=== PATIENT | male | born 1950 | race Caucasian/White ===

== ENCOUNTER 2020-02-21 09:47 | Outpatient (REF) | payer OTHER, SELFPAY ==
[2020-02-21 11:55] LABS: Free T4 (Free Thyroxine) 1.19 ng/dL (0.71-1.85); Thyroid Stimulating Hormone 0.07 mIU/mL (0.32-4.0)
== END 2020-02-21 09:48 | disposition home or self-care (01) ==
LOC: HO.HMGCLDS 09:47
PROVIDERS: PCP Internal Medicine; Visit Provider Nurse Practitioner Gerontology
DX: E03.8 Other specified hypothyroidism (principal)
CPT/HCPCS: 84439; 84443

== ENCOUNTER 2020-05-10 07:29 | Outpatient (REF) | payer OTHER, SELFPAY ==
[2020-05-10 11:12] LABS: MANUAL DIFF FLAG NO
[2020-05-10 11:31] LABS: Basophils Absolute Auto 0.1 X10*3/uL (0.0-0.2); Basophils Percent Auto 1.1 % (0-2); Eosinophils Absolute Auto 0.3 X10*3/uL (0.0-0.4); Eosinophils Percent Auto 5.1 % (0-4); Hematocrit 37.7 % (42-52); Hemoglobin 12.5 g/dl (14.0-18.0); Imm Gran Abs Auto 0.02 X10*3/uL (0.00-0.03); Imm Gran Pct Auto 0.3 % (0.0-0.4); Lymphocytes Absolute Auto 2.8 X10*3/uL (1.2-4.9); Lymphocytes Percent Auto 42.9 % (20-40); Mean Corpuscular HGB Conc 33.2 g/dl (31.0-36.0); Mean Corpuscular Volume 93.5 fL (80-98); Mean Platelet Volume 10.4 fL (9.4-12.4); Monocytes Absolute Auto 0.5 X10*3/uL (0.1-1.2); Monocytes Percent Auto 8.4 % (2-11); Neutrophils Absolute Auto 2.7 X10*3/uL (2.0-8.3); Neutrophils Percent Auto 42.2 % (45-73); Platelet Count 171 X10*3/uL (160-400); Red Blood Count 4.03 X10*6/uL (4.60-5.80); Red Cell Distribution Width 13.3 % (11.0-16.0); White Blood Count 6.5 X10*3/uL (4.8-10.8)
[2020-05-10 12:05] LABS: Free T4 (Free Thyroxine) 1.13 ng/dL (0.71-1.85); Thyroid Stimulating Hormone 0.22 uIU/mL (0.32-4.0)
[2020-05-10 12:06] LABS: Estimated Average Glucose 108 mg/dL; Hemoglobin A1c % 5.4 %
[2020-05-10 12:12] LABS: Prostate Specific Antigen Scr 0.37 ng/mL (<0.05-4.0)
[2020-05-10 12:13] LABS: Alanine Aminotransferase 23 U/L (0-40); Albumin Level 4.3 g/dL (3.5-5.0); Alkaline Phosphatase 137 U/L (39-117); Anion Gap 17 (12-20); Aspartate Amino Transferase 28 U/L (5-37); Bilirubin Total 0.7 mg/dL (0.0-1.0); Blood Urea Nitrogen 25 mg/dL (9-16); Calcium 8.9 mg/dL (8.4-10.2); Carbon Dioxide 21 mmol/L (22-29); Chloride 107 mmol/L (96-108); Cholesterol 229 mg/dL; Estimated Glomerular Filt Rate 51; Glucose Fasting 100 mg/dL (60-99); HDL Cholesterol 55 mg/dL; LDL Cholesterol Calculated 146 mg/dl; Potassium 4.7 mmol/l (3.3-5.1); Sodium 140 mmol/L (135-145); Total Protein 7.3 g/dL (6.5-8.0); Triglycerides 142 mg/dL
[2020-05-10 14:34] LABS: Creatinine Urine 84.22 mg/dL; Microalbum/Creatinine Ratio Ur 8.3 ug/mg cr
== END 2020-05-10 07:30 | disposition home or self-care (01) ==
LOC: HO.HMGCLDS 07:29
PROVIDERS: Physician Assistant; PCP Internal Medicine; Visit Provider Nurse Practitioner Gerontology
DX: I10 Essential (primary) hypertension (principal); E03.9 Hypothyroidism, unspecified; Z12.5 Encounter for screening for malignant neoplasm of prostate
CPT/HCPCS: 36415; 80053; 80061; 82043; 83036; 84153; 84439; 84443; 85025

== ENCOUNTER 2020-06-26 09:45 | Outpatient (REF) | payer OTHER, SELFPAY ==
[2020-06-26 12:03] LABS: Free T4 (Free Thyroxine) 1.03 ng/dL (0.71-1.85)
== END 2020-06-26 09:46 | disposition home or self-care (01) ==
LOC: HO.HMGCLDS 09:45
PROVIDERS: PCP Internal Medicine; Visit Provider Nurse Practitioner Gerontology
DX: E03.9 Hypothyroidism, unspecified (principal)
CPT/HCPCS: 36415; 84439; 84443

== ENCOUNTER 2020-08-22 07:41 | Outpatient (REF) | payer OTHER, SELFPAY ==
[2020-08-22 12:41] LABS: Free T4 (Free Thyroxine) 1.12 ng/dL (0.71-1.85); Thyroid Stimulating Hormone 1.05 uIU/mL (0.32-4.0)
== END 2020-08-22 07:42 | disposition home or self-care (01) ==
LOC: HO.HMGCLDS 07:41
PROVIDERS: PCP Internal Medicine; Visit Provider Nurse Practitioner Gerontology
DX: E03.9 Hypothyroidism, unspecified (principal)
CPT/HCPCS: 36415; 84439; 84443

== ENCOUNTER 2020-10-10 12:58 | Outpatient (REF) | payer MEDICARE, SELFPAY ==
[2020-10-10 14:21] LABS: Hemoglobin 12.9 g/dl (14.0-18.0); Mean Corpuscular HGB Conc 33.9 g/dl (31.0-36.0); Mean Corpuscular Volume 91.3 fL (80-98); Mean Platelet Volume 10.5 fL (9.4-12.4); Platelet Count 172 X10*3/uL (160-400); Red Blood Count 4.16 X10*6/uL (4.60-5.80); Red Cell Distribution Width 12.5 % (11.0-16.0); White Blood Count 7.8 X10*3/uL (4.8-10.8)
[2020-10-10 14:52] LABS: Alanine Aminotransferase 18 U/L (0-40); Albumin Level 4.5 g/dL (3.5-5.0); Alkaline Phosphatase 126 U/L (39-117); Anion Gap 14 (12-20); Aspartate Amino Transferase 27 U/L (5-37); Bilirubin Direct 0.3 mg/dL (0.0-0.5); Blood Urea Nitrogen 20 mg/dL (9-16); Calcium 9.4 mg/dL (8.4-10.2); Carbon Dioxide 22 mmol/L (22-29); Chloride 107 mmol/L (96-108); Cholesterol 240 mg/dL; Estimated Glomerular Filt Rate 47; Glucose Random 79 mg/dL (60-115); HDL Cholesterol 50 mg/dL; LDL Cholesterol Calculated 152 mg/dl; Potassium 4.8 mmol/L (3.3-5.1); Sodium 138 mmol/L (135-145); Total Protein 7.4 g/dL (6.5-8.0); Triglycerides 193 mg/dL
[2020-10-10 15:35] LABS: Thyroid Stimulating Hormone 1.25 uIU/mL (0.32-4.0)
== END 2020-10-10 12:59 | disposition home or self-care (01) ==
LOC: HO.HMGCLDS 12:58
PROVIDERS: PCP Internal Medicine; Visit Provider Internal Medicine
DX: E03.9 Hypothyroidism, unspecified (principal); I10 Essential (primary) hypertension
CPT/HCPCS: 36415; 80048; 80061; 80076; 84443; 85027

== ENCOUNTER → 2021-01-12 11:09 | Outpatient (BNVA) | payer MEDICARE, SELFPAY | PROVIDERS: PCP Internal Medicine; Visit Provider Nurse Practitioner Gerontology | DX: E03.9 Hypothyroidism, unspecified (principal); E06.3 Autoimmune thyroiditis | CPT/HCPCS: Q3014 ==

== ENCOUNTER 2021-07-05 07:25 | Outpatient (REF) | payer MEDICARE, SELFPAY ==
[2021-07-05 11:02] LABS: MANUAL DIFF FLAG NO
[2021-07-05 11:12] LABS: Basophils Percent Auto 0.6 % (0-2); Eosinophils Absolute Auto 0.2 X10*3/uL (0.0-0.4); Hematocrit 40.5 % (42.0-52.0); Hemoglobin 13.6 g/dl (14.0-18.0); Imm Gran Abs Auto 0.02 X10*3/uL (0.00-0.03); Imm Gran Pct Auto 0.4 % (0.0-0.4); Lymphocytes Absolute Auto 2.6 X10*3/uL (1.2-4.9); Lymphocytes Percent Auto 48.2 % (20-40); Mean Corpuscular HGB Conc 33.6 g/dl (31.0-36.0); Mean Corpuscular Hemoglobin 31.6 pg (27.0-33.0); Mean Platelet Volume 10.3 fL (9.4-12.4); Monocytes Absolute Auto 0.4 X10*3/uL (0.1-1.2); Monocytes Percent Auto 7.9 % (2-11); Neutrophils Absolute Auto 2.1 x10*3/uL (2.0-8.3); Neutrophils Percent Auto 38.9 % (45-73); Platelet Count 161 X10*3/uL (160-400); Red Blood Count 4.31 X10*6/uL (4.60-5.80); Red Cell Distribution Width 12.6 % (11.0-16.0); White Blood Count 5.3 X10*3/uL (4.8-10.8)
[2021-07-05 11:48] LABS: Alanine Aminotransferase 15 U/L (0-40); Albumin Level 4.5 g/dL (3.5-5.0); Alkaline Phosphatase 89 U/L (39-117); Anion Gap 10 (12-20); Aspartate Amino Transferase 24 U/L (5-37); Bilirubin Total 0.8 mg/dL (0.0-1.0); Blood Urea Nitrogen 18 mg/dL (9-16); Calcium 9.4 mg/dL (8.4-10.2); Carbon Dioxide 27 mmol/L (22-29); Chloride 108 mmol/L (96-108); Cholesterol 256 mg/dL; Estimated Glomerular Filt Rate 48; Glucose Fasting 95 mg/dL (60-99); HDL Cholesterol 52 mg/dL; LDL Cholesterol Calculated 170 mg/dl; Potassium 3.9 mmol/L (3.3-5.1); Sodium 141 mmol/L (135-145); Total Protein 7.4 g/dL (6.5-8.0); Triglycerides 173 mg/dL
[2021-07-05 11:51] LABS: TSH reflex Free T4 5.49 uIU/mL (0.32-4.0)
[2021-07-05 12:10] LABS: Folate > 20.0 ng/mL (> or = 4.0); Vitamin B12 803 pg/mL (200-900)
[2021-07-05 12:36] LABS: Free T4 (Free Thyroxine) 1.03 ng/dL (0.71-1.85)
[2021-07-10 06:56] LABS: Vitamin D 25-OH, D2 <4 ng/mL; Vitamin D 25-OH, D3 50 ng/mL; Vitamin D 25-OH, Total 50 ng/mL (30-100)
== END 2021-07-05 07:26 | disposition home or self-care (01) ==
LOC: HO.HMGCLDS 07:25
PROVIDERS: PCP Internal Medicine; Visit Provider Nurse Practitioner Acute Care
DX: E03.9 Hypothyroidism, unspecified (principal)
CPT/HCPCS: 36415; 80053; 80061; 82306; 82607; 82746; 84439; 84443; 85025

== ENCOUNTER 2022-01-17 07:11 | Outpatient (REF) | payer MEDICARE, SELFPAY ==
[2022-01-17 11:26] LABS: Hematocrit 38.7 % (42.0-52.0); Mean Corpuscular HGB Conc 33.6 g/dl (31.0-36.0); Mean Corpuscular Hemoglobin 31.2 pg (27.0-33.0); Mean Corpuscular Volume 92.8 fL (80.0-98.0); Mean Platelet Volume 10.7 fL (9.4-12.4); Platelet Count 153 X10*3/uL (160-400); Red Blood Count 4.17 X10*6/uL (4.60-5.80); Red Cell Distribution Width 12.8 % (11.0-16.0); White Blood Count 5.2 X10*3/uL (4.8-10.8)
[2022-01-17 11:37] LABS: Alanine Aminotransferase 18 U/L (0-40); Albumin Level 4.4 g/dL (3.5-5.0); Alkaline Phosphatase 91 U/L (39-117); Anion Gap 15 (12-20); Aspartate Amino Transferase 25 U/L (5-37); Bilirubin Direct 0.2 mg/dL (0.0-0.5); Bilirubin Total 0.5 mg/dL (0.0-1.0); Blood Urea Nitrogen 22 mg/dL (9-16); Calcium 9.3 mg/dL (8.4-10.2); Carbon Dioxide 24 mmol/L (22-29); Chloride 107 mmol/L (96-108); Cholesterol 218 mg/dL; Estimated Glomerular Filt Rate 55; Glucose Random 88 mg/dL (60-115); HDL Cholesterol 48 mg/dL; LDL Cholesterol Calculated 124 mg/dl; Potassium 4.5 mmol/L (3.3-5.1); Sodium 141 mmol/L (135-145); Total Protein 7.2 g/dL (6.5-8.0); Triglycerides 233 mg/dL
[2022-01-17 11:40] LABS: Appearance Urine Clear; Color Urine Yellow; Glucose Urine UA Negative (Negative); Leukocyte Esterase Urine Negative (Negative); Nitrite Urine Negative (Negative); Urine Blood Negative (Negative); Urine Ketones Negative (Negative); Urine Protein Negative (Neg-Trace)
[2022-01-17 12:02] LABS: Thyroid Stimulating Hormone 0.26 uIU/mL (0.32-4.0)
== END 2022-01-17 07:12 | disposition home or self-care (01) ==
LOC: HO.HMGCLDS 07:11
PROVIDERS: PCP Internal Medicine; Visit Provider Internal Medicine
DX: E78.00 Pure hypercholesterolemia, unspecified (principal); F32.9 Major depressive disorder, single episode, unspecified; I10 Essential (primary) hypertension; E03.9 Hypothyroidism, unspecified
CPT/HCPCS: 36415; 80048; 80061; 80076; 81003; 84443; 85027

== ENCOUNTER 2022-08-20 07:56 | Outpatient (REF) | payer MEDICARE, SELFPAY ==
[2022-08-20 11:43] LABS: Hemoglobin 13.3 g/dl (14.0-18.0); Mean Corpuscular HGB Conc 34.1 g/dl (31.0-36.0); Mean Corpuscular Hemoglobin 31.4 pg (27.0-33.0); Mean Corpuscular Volume 92.2 fL (80.0-98.0); Mean Platelet Volume 10.6 fL (9.4-12.4); Platelet Count 155 X10*3/uL (160-400); Red Blood Count 4.23 X10*6/uL (4.60-5.80); Red Cell Distribution Width 12.4 % (11.0-16.0); White Blood Count 4.7 X10*3/uL (4.8-10.8)
[2022-08-20 11:55] LABS: Alanine Aminotransferase 13 U/L (0-40); Albumin Level 4.3 g/dL (3.5-5.0); Alkaline Phosphatase 76 U/L (39-117); Anion Gap 12 (12-20); Aspartate Amino Transferase 21 U/L (5-37); Bilirubin Direct 0.2 mg/dL (0.0-0.5); Bilirubin Total 0.8 mg/dL (0.0-1.0); Blood Urea Nitrogen 17 mg/dL (9-16); Calcium 9.1 mg/dL (8.4-10.2); Carbon Dioxide 27 mmol/L (22-29); Chloride 108 mmol/L (96-108); Cholesterol 206 mg/dL; Estimated Glomerular Filt Rate 55; Glucose Random 91 mg/dL (60-115); HDL Cholesterol 48 mg/dL; LDL Cholesterol Calculated 127 mg/dl; Potassium 4.5 mmol/L (3.3-5.1); Sodium 142 mmol/L (135-145); Total Protein 6.8 g/dL (6.5-8.0); Triglycerides 156 mg/dL
[2022-08-20 12:12] LABS: Thyroid Stimulating Hormone 0.32 uIU/mL (0.32-4.0)
== END 2022-08-20 07:57 | disposition home or self-care (01) ==
LOC: HO.HMGCLDS 07:56
PROVIDERS: PCP Internal Medicine; Visit Provider Internal Medicine
DX: E03.9 Hypothyroidism, unspecified (principal); E78.00 Pure hypercholesterolemia, unspecified
CPT/HCPCS: 36415; 80048; 80061; 80076; 84443; 85027

== ENCOUNTER 2023-01-16 14:48 | Outpatient (AMB) | payer MEDICARE, SELFPAY ==
--- NOTE | 2023-01-16 14:58 | A.OFFPC_ITS ---
Vital Signs 01/16/23 15:00 Height 5 ft 9 in Weight 175 lb 6 oz BMI 25.9 BP 130/80 Blood Pressure Location Lt brachial Position Sitting Pulse 78 Pulse Source Pulse Oximeter Pulse Oximetry (%) 98 Oxygen Delivery Method Room Air Intake Visit Reasons: 6mth f/u Intake Note: Patient is here to follow up on HTN, Hypothyroidism,. Last Inserter Required: No Draw Operator: Present Accompanied by: Spouse Allergies cat dander Allergy (Unknown, Verified 01/19/23 10:58) Unknown mold Allergy (Unknown, Verified 01/19/23 10:58) Unknown tree and shrub pollen Allergy (Unknown, Verified 01/19/23 10:58) Unknown Medication List - Last Reconciled 01/19/23 by Mario Alberto Queen MD levothyroxine 125 mcg PO DAILY metoprolol tartrate 50 mg PO DAILY Tobacco use date assessed: 01/16/23 Fall risk assessment: No Falls in past year Last assessed Fall Risk: 01/16/23 Dental Screening Dental Screen Date: 01/16/23 Did you have a dental visit in the last 12 months?: Yes Did you have a dental problem in the last 6 months where you did not have access to dental care?: No Was dental information given to patient?: Patient has dentist HPI 6mth f/u HPI Details 72-year-old male presents to the office to discuss his chronic medical conditions. Patient recently underwent a right total knee replacement. He has recovered well from the procedure. Still undergoing physical therapy. Continues to have minimal discomfort her coming down stairs. Able to function and do all activities of daily living. Has begun to drive also. [facility] Medical History (Updated 01/19/23 @ 11:00 by Mario Alberto Queen MD) MDD (major depressive disorder) HTN (hypertension) Andre's disease Hypothyroidism (acquired) Surgical History History of knee replacement procedure of right knee History of bilateral cataract extraction History of hip replacement H/O knee surgery History of tonsillectomy Family History Father Hypertension Aortic valvular disease Mother Hypertension Alzheimers disease Maternal Aunt Cancer Social History Household Members: Spouse Housing: House Alcohol intake: former Patient Tobacco Use Status: Former Tobacco user e-Cigarette/Vaping Use: Never Used Second Hand Smoke Exposure: No service: No Current occupational status: retired Cognitive needs: No Hearing needs: No Vision needs: No Questionnaire Thrive Questionnaire Date Thrive assessed: 07/10/22 INDERJIT-7 AMB Questionnaire INDERJIT-7 Date INDERJIT - 7 assessed: 07/10/22 Source: Developed by Drs. Sanjay Bliss, Vida Hernandez, Hector Duarte and colleagues, with an educational cynthia from [employer]. Physical exam (Primary Care) Vital Signs: Last Vital Signs Pulse 78 01/16/23 15:00 BP 130/80 01/16/23 15:00 Pulse Ox 98 01/16/23 15:00 Oxygen Delivery Method Room Air 01/16/23 15:00 Care Plan Goal for BP management: Blood pressure is in range. Continue medications at same dosage BMI result Body Mass Index 25.9 Tobacco/Smoking Status: Tobacco use Status Tobacco use date assessed 01/16/23 01/16/23 15:02 Patient Tobacco Use Status Former Tobacco user 01/16/23 15:02 e-Cigarette/Vaping Use Never Used 01/16/23 15:02 Thrive Assessment: Date of Thrive Assessment Date Thrive assessed 07/10/22 01/16/23 15:02 Advance Care Planning discussion: Exists, not on file Date of discussion: 01/16/23 Who was present: Patient and his Forms completed: Health Care Proxy and MOLST Time spent: 1-15 minutes, not on file Actual minutes spent: 5 Const General: cooperative and healthy appearing Nutritional Appearance: well nourished Orientation/consciousness: patient oriented x3 Limitations: no limitations HENMT Head: Yes normal to inspection Eyes General: appearance normal, both eyes and all related structures Neck Neck: Yes normal visual inspection Chest Chest palpation & inspection: normal palpation of entire chest wall Resp Effort & Inspection: normal respiratory effort Neuro General: patient oriented x3 Assessment and Plan Assessment & Plan (1) HTN (hypertension): Code(s): I10 - Essential (primary) hypertension Qualifiers: Hypertension type: primary hypertension Qualified Code(s): I10 - Essential (primary) hypertension Plan: Blood pressure is in range. Continue current medications (2) MDD (major depressive disorder): Code(s): F32.9 - Major depressive disorder, single episode, unspecified Qualifiers: Major depression recurrence: recurrent Active/Remission status: cu rrently active Major depression episode severity: mild Qualified Code(s): F33.0 - Major depressive disorder, recurrent, mild Plan: Condition is stable (3) Hypothyroidism (acquired): Code(s): E03.9 - Hypothyroidism, unspecified Plan: TSH is in range. Continue Synthroid at same dosage. (4) Hypercholesteremia: Code(s): E78.00 - Pure hypercholesterolemia, unspecified Plan: LDL is in range. Continue medications at same dosage. Medications: Refilled metoprolol tartrate 50 mg PO DAILY 90 tabs 1RF Coding Level of Care Code Est Pt Level 4 (22022) Diagnoses Primary hypertension I10 Hypertension type: primary hypertension Mild episode of recurrent major depressive disorder F33.0 Major depression recurrence: recurrent Active/Remission status: currently active Major depression episode severity: mild Hypothyroidism (acquired) E03.9 Hypercholesteremia E78.00 Additional Codes Vital Signs *Quality* - Advance Care Planning discussion: Exists, not on file ([id number]) Vital Signs *Quality* - Time spent: 1-15 minutes, not on file ([id number])
[2023-01-16 15:00] VITALS: BP 130/80; PULSE 78; O2SAT 98; BMI 25.9
== END 2023-01-16 15:22 | disposition home or self-care (01) ==
PROVIDERS: Visit Provider Internal Medicine
DX: I10 Essential (primary) hypertension (principal); F33.0 Major depressive disorder, recurrent, mild; E03.9 Hypothyroidism, unspecified; E78.00 Pure hypercholesterolemia, unspecified; Z00.00 Encounter for general adult medical examination without abnormal findings
CPT/HCPCS: 1123F; 1124F; 99214

== ENCOUNTER 2023-07-17 14:21 | Outpatient (AMB) | payer MEDICARE, SELFPAY ==
--- NOTE | 2023-07-17 14:25 | A.OFFPC_ITS ---
Vital Signs 07/17/23 14:27 Height 5 ft 9 in Weight 180 lb 6 oz BMI 26.6 BP 138/62 Blood Pressure Location Rt brachial Position Sitting Pulse 58 Pulse Source Pulse Oximeter Pulse Oximetry (%) 100 Oxygen Delivery Method Room Air Intake Visit Reasons: 6 month f/u Intake Note: Patient is here to follow up on HTN, Hypercholestermia, Hypothyroidism, MDD. Evaluator Required: No Railroad Construction Director: Present Accompanied by: Spouse Allergies cat dander Allergy (Unknown, Verified 07/26/23 14:39) Unknown mold Allergy (Unknown, Verified 07/26/23 14:39) Unknown tree and shrub pollen Allergy (Unknown, Verified 07/26/23 14:39) Unknown Medication List - Last Reconciled 07/26/23 by Mario Alberto Queen MD levothyroxine 125 mcg PO DAILY metoprolol tartrate 50 mg PO DAILY Tobacco use date assessed: 07/17/23 Fall risk assessment: No Falls in past year Last assessed Fall Risk: 07/17/23 Dental Screening Dental Screen Date: 07/17/23 Did you have a dental visit in the last 12 months?: Yes Did you have a dental problem in the last 6 months where you did not have access to dental care?: No Was dental information given to patient?: Patient has dentist HPI 6 month f/u HPI Details 72-year-old male presents to the office to discuss his chronic medical conditions. Patient is at baseline state of health. He is able to function and do all activities of daily living. Recently had oral surgery done and he could handle the procedure well. Continues to attend alcoholic anonymous meetings. [facility] Medical History MDD (major depressive disorder) HTN (hypertension) Andre's disease Hypothyroidism (acquired) Surgical History History of oral surgery History of knee replacement procedure of right knee History of bilateral cataract extraction History of hip replacement H/O knee surgery History of tonsillectomy Family History Father Hypertension Aortic valvular disease Mother Hypertension Alzheimers disease Maternal Aunt Cancer Social History Household Members: Spouse Housing: House Alcohol intake: former Patient Tobacco Use Status: Former Tobacco user e-Cigarette/Vaping Use: Never Used Second Hand Smoke Exposure: No service: No Current occupational status: retired Cognitive needs: No Hearing needs: No Vision needs: No Questionnaire PHQ-9 Over the last 2 weeks, how often have you been bothered by any of the following problems? 1. Little interest or pleasure in doing things: not at all 2. Feeling down, depressed, or hopeless: not at all 3. Trouble falling or staying asleep, or sleeping too much: not at all 4. Feeling tired or having little energy: not at all 5. Poor appetite or overeating: not at all 6. Feeling bad about yourself - or that you are a failure or have let yourself or your family down: not at all 7. Trouble concentrating on things, such as reading the newspaper or watching television: not at all 8. Moving or speaking so slowly that other people could have noticed. Or the opposite - being so fidgety or restless that you have been moving around a lot more than usual: not at all 9. Thoughts that you would be better off or of hurting yourself in some way: not at all Total score: 0 Depression Screening Interpretation: Negative Depression Screening Done: Yes Source: Developed by Drs. Sanjay Bliss, Vida Hernandez, Hector Duarte and colleagues, with an educational cynthia from [employer]. Thrive Questionnaire Date Thrive assessed: 07/17/23 I am a: Patient What is your living situation today?: I have a steady place to live Within the past 12 months, did the food you bought not last and you didn't have the money to get more?: Never true Within the past 12 months, did you worry whether your food would run out before you got money to buy more?: Never true Do you have trouble paying for medicines?: No Do you have trouble getting transportation to medical appointments?: No Do you have trouble paying your heating and electricity bill?: No Do you have trouble taking care of your child, family member or friend?: No Do you have trouble with day-to-day activities such as bathing, preparing meals, shopping, managing finances, etc.?: No Are you currently unemployed and looking for a job?: No Are you interested in more education?: No Currently or been in a relationship where the following occur: no concerns reported THRIVE Score: 0 AUDIT C Alcohol Use Questionnaire (AUDIT-C) 1. How often do you have a drink containing alcohol?: Never Total Score: 0 INDERJIT-7 AMB Questionnaire INDERJIT-7 Date INDERJIT - 7 assessed: 07/17/23 Feeling nervous, anxious, or on edge: 0 = Not at all Not being able to stop or control worryin = Not at all Worrying too much about different things: 0 = Not at all Trouble relaxin = Not at all Being so restless that it is hard to sit still: 0 = Not at all Becoming easily annoyed or irritable: 0 = Not at all Feeling afraid as if something awful might happen: 0 = Not at all Total INDERJIT-7 score (0-4 normal; 5-9 mild; 10-14 moderate; 15-21 severe): 0 Source: Developed by Drs. Sanjay Bliss, Vida Hernandez, Hector Duarte and colleagues, with an educational cynthia from [employer]. Physical exam (Primary Care) Vital Signs: Last Vital Signs Pulse 58 07/17/23 14:27 BP 138/62 07/17/23 14:27 Pulse Ox 100 07/17/23 14:27 Oxygen Delivery Method Room Air 07/17/23 14:27 Care Plan Goal for BP management: Blood pressure is in range. BMI result Body Mass Index 26.6 Tobacco/Smoking Status: Tobacco use Status Tobacco use date assessed 07/17/23 07/17/23 14:39 Patient Tobacco Use Status Former Tobacco user 07/17/23 14:39 e-Cigarette/Vaping Use Never Used 07/17/23 14:39 PHQ-9: PHQ-9 Score PHQ-9: Total score 0 07/17/23 15:02 Depression Screening Interpretation: Negative Thrive Assessment: Date of Thrive Assessment Date Thrive assessed 07/17/23 07/17/23 14:39 Currently or been in a relationship where the following occur: no concerns reported Advance Care Planning discussion: Exists, not on file Date of discussion: 07/17/23 Forms completed: Health Care Proxy Time spent: 1-15 minutes, not on file Actual minutes spent: 5 Const General: cooperative and healthy appearing Nutritional Appearance: well nourished Orientation/consciousness: patient oriented x3 Limitations: no limitations HENMT Head: Yes normal to inspection Eyes General: appearance normal, both eyes and all related structures Neck Neck: Yes normal visual inspection Chest Chest palpation & inspection: normal palpation of entire chest wall Resp Effort & Inspection: normal respiratory effort Neuro General: patient oriented x3 Assessment and Plan Assessment & Plan (1) HTN (hypertension): Code(s): I10 - Essential (primary) hypertension Qualifiers: Hypertension type: primary hypertension Qualified Code(s): I10 - Essential (primary) hypertension Plan: Blood pressure is in range. Blood work has been ordered. Will call with results. Continue medications at same dosage. (2) Hypercholesteremia: Code(s): E78.00 - Pure hypercholesterolemia, unspecified Plan: Blood work has been ordered. Will call with the results. Continue statins at same dosage. Orders: Orders Lipid Panel 07/17/23 I10 - Essential (primary) hypertension, E78.00 - Pure hypercholesterolemia, unspecified Liver Panel 07/17/23 I10 - Essential (primary) hypertension, E78.00 - Pure hyp ercholesterolemia, unspecified Prostate Specific Antigen Scr 07/17/23 I10 - Essential (primary) hypertension, E78.00 - Pure hypercholesterolemia, unspecified Basic Metabolic Panel 07/17/23 I10 - Essential (primary) hypertension, E78.00 - Pure hypercholesterolemia, unspecified Complete Blood Count no Diff 07/17/23 I10 - Essential (primary) hypertension, E78.00 - Pure hypercholesterolemia, unspecified Thyroid Stimulating Hormone 07/17/23 I10 - Essential (primary) hypertension, E78.00 - Pure hypercholesterolemia, unspecified UA and rflx microscopic 07/17/23 I10 - Essential (primary) hypertension, E78.00 - Pure hypercholesterolemia, unspecified Coding Level of Care Code Est Pt Level 4 (77244) Diagnoses Primary hypertension I10 Hypertension type: primary hypertension Hypercholesteremia E78.00 Additional Codes Vital Signs *Quality* - Advance Care Planning discussion: Exists, not on file ([id number]) Vital Signs *Quality* - Time spent: 1-15 minutes, not on file ([id number])
[2023-07-17 14:27] VITALS: BP 138/62; PULSE 58; O2SAT 100; BMI 26.6
== END 2023-07-17 15:04 | disposition home or self-care (01) ==
PROVIDERS: PCP Internal Medicine; Visit Provider Internal Medicine
DX: I10 Essential (primary) hypertension (principal); E78.00 Pure hypercholesterolemia, unspecified; Z00.00 Encounter for general adult medical examination without abnormal findings
CPT/HCPCS: 1123F; 1124F; 99214

== ENCOUNTER 2023-08-05 07:33 | Outpatient (REF) | payer MEDICARE, SELFPAY ==
[2023-08-05 12:56] LABS: Hematocrit 37.5 % (42.0-52.0); Hemoglobin 12.8 g/dl (14.0-18.0); Mean Corpuscular HGB Conc 34.1 g/dl (31.0-36.0); Mean Corpuscular Hemoglobin 31.1 pg (27.0-33.0); Mean Corpuscular Volume 91.2 fL (80.0-98.0); Mean Platelet Volume 10.1 fL (9.4-12.4); Platelet Count 173 X10*3/uL (160-400); Red Blood Count 4.11 X10*6/uL (4.60-5.80); Red Cell Distribution Width 12.8 % (11.0-16.0); White Blood Count 4.8 X10*3/uL (4.8-10.8)
[2023-08-05 13:17] LABS: Appearance Urine Clear; Color Urine Yellow; Glucose Urine UA Negative (Negative); Leukocyte Esterase Urine Negative (Negative); Nitrite Urine Negative (Negative); Specific Gravity - Urine <= 1.005 (1.005-1.025); Urine Blood Negative (Negative); Urine Ketones Negative (Negative); Urine Protein Negative (Neg-Trace)
[2023-08-05 13:25] LABS: Prostate Specific Antigen Scr 0.49 ng/mL (<0.05-4.0)
[2023-08-05 13:29] LABS: Alanine Aminotransferase 20 U/L (0-40); Albumin Level 4.1 g/dL (3.5-5.0); Alkaline Phosphatase 82 U/L (39-117); Anion Gap 11 (12-20); Aspartate Amino Transferase 28 U/L (5-37); Bilirubin Direct 0.2 mg/dL (0.0-0.5); Bilirubin Total 0.5 mg/dL (0.0-1.0); Blood Urea Nitrogen 11 mg/dL (9-16); Calcium 9.2 mg/dL (8.4-10.2); Carbon Dioxide 25 mmol/L (22-29); Chloride 109 mmol/L (96-108); Cholesterol 215 mg/dL (<200); Estimated Glomerular Filt Rate 58; Glucose Random 94 mg/dL (60-115); HDL Cholesterol 51 mg/dL (>40); LDL Cholesterol Calculated 132 mg/dL (<100); Potassium 4.2 mmol/L (3.3-5.1); Sodium 141 mmol/L (135-145); Thyroid Stimulating Hormone 0.48 uIU/mL (0.32-4.0); Total Protein 7.3 g/dL (6.5-8.0); Triglycerides 162 mg/dL (<150)
== END 2023-08-05 07:34 | disposition home or self-care (01) ==
LOC: HO.HMGCLDS 07:33
PROVIDERS: PCP Internal Medicine; Visit Provider Internal Medicine
DX: I10 Essential (primary) hypertension (principal); E78.00 Pure hypercholesterolemia, unspecified; Z12.5 Encounter for screening for malignant neoplasm of prostate
CPT/HCPCS: 36415; 80048; 80061; 80076; 81003; 84153; 84443; 85027

== ENCOUNTER 2024-01-15 13:45 | Outpatient (AMB) | payer MEDICARE, SELFPAY ==
--- NOTE | 2024-01-15 13:58 | MHC.PC.OV ---
Vital Signs 01/15/24 14:01 Height 5 ft 9 in Weight 179 lb 2 oz BMI 26.4 BP 112/78 Blood Pressure Location Lt brachial Position Sitting Pulse 59 Pulse Source Pulse Oximeter Pulse Oximetry (%) 98 Oxygen Delivery Method Room Air Intake Visit Reasons: 6 Month F/U Intake Note: Patient is here to follow up on HTN, Hypothyroidism, Hypercholesteroemia. Extractor Operator Helper Required: No Respiratory Therapy Director: Present Accompanied by: Spouse Allergies cat dander Allergy (Unknown, Verified 01/15/24 14:01) Unknown mold Allergy (Unknown, Verified 01/15/24 14:01) Unknown tree and shrub pollen Allergy (Unknown, Verified 01/15/24 14:01) Unknown Tobacco use date assessed: 01/15/24 Fall risk assessment: No Falls in past year Last assessed Fall Risk: 01/15/24 Dental Screening Dental Screen Date: 07/17/23 HPI 6 Month F/U HPI Details 73-year-old male presents to the office to discuss his chronic medical conditions. Compliant with medications and reporting no side effects. Able to function and do activities of daily living. Patient continues to have issues with the dental health. an implant inserted had to be removed. Also has difficulty with smell and taste. [facility] Medical History MDD (major depressive disorder) HTN (hypertension) Andre's disease Hypothyroidism (acquired) Surgical History History of oral surgery History of knee replacement procedure of right knee History of bilateral cataract extraction History of hip replacement H/O knee surgery History of tonsillectomy Family History Father Hypertension Aortic valvular disease Mother Hypertension Alzheimers disease Maternal Aunt Cancer Social History Household Members: Spouse Housing: House Alcohol intake: former Patient Tobacco Use Status: Former Tobacco user e-Cigarette/Vaping Use: Never Used Second Hand Smoke Exposure: No service: No Current occupational status: retired Cognitive needs: No Hearing needs: No Vision needs: No Questionnaire Thrive Questionnaire Date Thrive assessed: 07/17/23 AUDIT C Alcohol Use Questionnaire (AUDIT-C) 3. How often do you have six or more drinks on one occasion?: Never Total Score: 0 INDERJIT-7 AMB Questionnaire INDERJIT-7 Date INDERJIT - 7 assessed: 07/17/23 Source: Developed by Drs. Sanjay Bliss, Vida Hernandez, Hector Duarte and colleagues, with an educational cynthia from [employer]. Physical exam (Primary Care) Vital Signs: Last Vital Signs Pulse 59 01/15/24 14:01 BP 112/78 01/15/24 14:01 Pulse Ox 98 01/15/24 14:01 Oxygen Delivery Method Room Air 01/15/24 14:01 Care Plan Goal for BP management: Blood pressure is in range. BMI result Body Mass Index 26.4 Tobacco/Smoking Status: Tobacco use Status Tobacco use date assessed 01/15/24 01/15/24 14:04 Patient Tobacco Use Status Former Tobacco user 01/15/24 14:04 e-Cigarette/Vaping Use Never Used 01/15/24 14:04 Thrive Assessment: Date of Thrive Assessment Date Thrive assessed 07/17/23 01/15/24 14:04 Advance Care Planning discussion: Exists, not on file Date of discussion: 01/15/24 Who was present: Patient and his Forms completed: Health Care Proxy and MOLST Time spent: 1-15 minutes, not on file Actual minutes spent: 5 Const General: cooperative and healthy appearing Nutritional Appearance: well nourished Orientation/consciousness: patient oriented x3 Limitations: no limitations HENMT Head: Yes normal to inspection Eyes General: appearance normal, both eyes and all related structures Neck Neck: Yes normal visual inspection Chest Chest palpation & inspection: normal palpation of entire chest wall Resp Effort & Inspection: normal respiratory effort Neuro General: patient oriented x3 Assessment and Plan Assessment & Plan (1) MDD (major depressive disorder): Code(s): F32.9 - Major depressive disorder, single episode, unspecified Qualifiers: Major depression recurrence: recurrent Active/Remission status: currently active Major depression episode severity: mild Qualified Code(s): F33.0 - Major depressive disorder, recurrent, mild Plan: Patient has depression symptoms are stable without medications. (2) HTN (hypertension): Code(s): I10 - Essential (primary) hypertension Qualifiers: Hypertension type: primary hypertension Qualified Code(s): I10 - Essential (primary) hypertension Plan: Blood pressure is stable. Blood work has been ordered. (3) Hypothyroidism (acquired): Code(s): E03.9 - Hypothyroidism, unspecified Plan: TSH has been ordered. Will call with results. (4) Hypercholesteremia: Code(s): E78.00 - Pure hypercholesterolemia, unspecified Plan: Continue current medications. Orders: Orders Basic Metabolic Panel Today E03.9 - Hypothyroidism, unspecified, E78.00 - Pure hypercholesterolemia, unspecified, F33.0 - Major depressive disorder, recurrent, mild, I10 - Essential (primary) hypertension Lipid Panel Today E03.9 - Hypothyroidism, unspecified, E78.00 - Pure hypercholesterolemia, unspecified, F33.0 - Major depressive disorder, recurrent, mild, I10 - Essential (primary) hypertension UA and rflx microscopic Today E03.9 - Hypothyroidism, unspecified, E78.00 - Pure hypercholesterolemia, unspecified, F33.0 - Major depressive disorder, recurrent, mild, I10 - Essential (primary) hypertension Complete Blood Count no Diff Today E03.9 - Hypothyroidism, unspecified, E78.00 - Pure hypercholesterolemia, unspecified, F33.0 - Major depressive disorder, recurrent, mild, I10 - Essential (primary) hypertension Liver Panel Today E03.9 - Hypothyroidism, unspecified, E78.00 - Pure hypercholesterolemia, unspecified, F33.0 - Major depressive disorder, recurrent, mild, I10 - Essential (primary) hypertension Thyroid Stimulating Hormone Today E03.9 - Hypothyroidism, unspecified, E78.00 - Pure hypercholesterolemia, unspecified, F33.0 - Major depressive disorder, recurrent, mild, I10 - Essential (primary) hypertension Coding Level of Care Code Est Pt Level 4 (11738) Complex EM visit Add On [id number] Diagnoses Mild episode of recurrent major depressive disorder F33.0 Major depression recurrence: recurrent Active/Remission status: currently active Major depression episode severity: mild Primary hypertension I10 Hypertension type: primary hypertension Hypothyroidism (acquired) E03.9 Hypercholesteremia E78.00 Additional Codes Vital Signs *Quality* - Advance Care Planning discussion: Exists, not on file ([id number]) Vital Signs *Quality* - Time spent: 1-15 minutes, not on file ([id number])
[2024-01-15 14:01] VITALS: BP 112/78; PULSE 59; O2SAT 98; BMI 26.4
== END 2024-01-15 14:55 | disposition home or self-care (01) ==
PROVIDERS: PCP Internal Medicine; Visit Provider Internal Medicine
DX: F33.0 Major depressive disorder, recurrent, mild (principal); I10 Essential (primary) hypertension; E03.9 Hypothyroidism, unspecified; E78.00 Pure hypercholesterolemia, unspecified; Z00.00 Encounter for general adult medical examination without abnormal findings
CPT/HCPCS: 1123F; 1124F; 99214; G2211

== ENCOUNTER 2024-01-20 07:25 | Outpatient (REF) | payer MEDICARE, SELFPAY ==
[2024-01-20 10:18] LABS: Appearance Urine Clear; Color Urine Yellow; Glucose Urine UA Negative (Negative); Leukocyte Esterase Urine Negative (Negative); Nitrite Urine Negative (Negative); Urine Blood Negative (Negative); Urine Ketones Negative (Negative); Urine Protein Negative (Neg-Trace)
[2024-01-20 10:28] LABS: Hematocrit 37.5 % (42.0-52.0); Hemoglobin 13.1 g/dl (14.0-18.0); Mean Corpuscular HGB Conc 34.9 g/dl (31.0-36.0); Mean Corpuscular Hemoglobin 31.6 pg (27.0-33.0); Mean Corpuscular Volume 90.4 fL (80.0-98.0); Mean Platelet Volume 10.2 fL (9.4-12.4); Platelet Count 156 X10*3/uL (160-400); Red Blood Count 4.15 X10*6/uL (4.60-5.80); Red Cell Distribution Width 12.3 % (11.0-16.0)
[2024-01-20 11:16] LABS: Alanine Aminotransferase 16 U/L (0-40); Albumin Level 4.2 g/dL (3.5-5.0); Alkaline Phosphatase 72 U/L (39-117); Anion Gap 11 (12-20); Aspartate Amino Transferase 26 U/L (5-37); Bilirubin Direct 0.1 mg/dL (0.0-0.5); Bilirubin Total 0.4 mg/dL (0.0-1.0); Blood Urea Nitrogen 17 mg/dL (9-16); Calcium 9.3 mg/dL (8.4-10.2); Carbon Dioxide 26 mmol/L (22-29); Chloride 106 mmol/L (96-108); Cholesterol 214 mg/dL (<200); Estimated Glomerular Filt Rate 54; Glucose Random 94 mg/dL (60-115); HDL Cholesterol 48 mg/dL (>40); LDL Cholesterol Calculated 130 mg/dL (<100); Potassium 4.1 mmol/L (3.3-5.1); Sodium 139 mmol/L (135-145); Thyroid Stimulating Hormone 0.49 uIU/mL (0.32-4.0); Total Protein 7.3 g/dL (6.5-8.0); Triglycerides 182 mg/dL (<150)
== END 2024-01-20 07:26 | disposition home or self-care (01) ==
LOC: HO.HMGCLDS 07:25
PROVIDERS: PCP Internal Medicine; Visit Provider Internal Medicine
DX: F33.0 Major depressive disorder, recurrent, mild (principal); I10 Essential (primary) hypertension; E78.00 Pure hypercholesterolemia, unspecified; E03.9 Hypothyroidism, unspecified
CPT/HCPCS: 36415; 80048; 80061; 80076; 81003; 84443; 85027

== ENCOUNTER 2024-07-15 13:45 | Outpatient (AMB) | payer MEDICARE, SELFPAY ==
--- NOTE | 2024-07-15 14:07 | A.OFFPC_ITS ---
Vital Signs 07/15/24 14:09 Height 5 ft 9 in Weight 181 lb 2 oz BMI 26.7 BP 120/68 Blood Pressure Location Lt brachial Position Sitting Pulse 56 Pulse Source Pulse Oximeter Temp 97.3 F Temp Source Temporal Artery Scan Pulse Oximetry (%) 98 Oxygen Delivery Method Room Air Intake Visit Reasons: 6 month follow up Intake Note: Patient is here to follow up on HTN, Hypercholesterolemia, Hypothyroidism. [employer] Consultant Required: No Die Technician: Present Accompanied by: Spouse Allergies cat dander Allergy (Unknown, Verified 07/15/24 14:09) Unknown mold Allergy (Unknown, Verified 07/15/24 14:09) Unknown tree and shrub pollen Allergy (Unknown, Verified 07/15/24 14:09) Unknown Tobacco use date assessed: 07/15/24 Fall risk assessment: No Falls in past year Last assessed Fall Risk: 07/15/24 Dental Screening Dental Screen Date: 07/15/24 Did you have a dental visit in the last 12 months?: Yes Did you have a dental problem in the last 6 months where you did not have access to dental care?: No Was dental information given to patient?: Patient has dentist [facility] Medical History (Updated 07/15/24 @ 14:15 by ASÚL Florentino) History of insertion of dental endosseous implant MDD (major depressive disorder) HTN (hypertension) Andre's disease Hypothyroidism (acquired) Surgical History History of colonoscopy with polypectomy (~09/13/22) History of oral surgery History of knee replacement procedure of right knee History of bilateral cataract extraction History of hip replacement H/O knee surgery History of tonsillectomy Family History Father Hypertension Aortic valvular disease Mother Hypertension Alzheimers disease Maternal Aunt Cancer Social History Household Members: Spouse Housing: House Alcohol intake: former Patient Tobacco Use Status: Former Tobacco user e-Cigarette/Vaping Use: Never Used Second Hand Smoke Exposure: Yes service: No Current occupational status: retired Cognitive needs: No Hearing needs: No Vision needs: No Questionnaire PHQ-9 Over the last 2 weeks, how often have you been bothered by any of the following problems? 1. Little interest or pleasure in doing things: not at all 2. Feeling down, depressed, or hopeless: not at all 3. Trouble falling or staying asleep, or sleeping too much: not at all 4. Feeling tired or having little energy: not at all 5. Poor appetite or overeating: not at all 6. Feeling bad about yourself - or that you are a failure or have let yourself or your family down: not at all 7. Trouble concentrating on things, such as reading the newspaper or watching television: not at all 8. Moving or speaking so slowly that other people could have noticed. Or the opposite - being so fidgety or restless that you have been moving around a lot more than usual: not at all 9. Thoughts that you would be better off or of hurting yourself in some way: not at all Total score: 0 Depression Screening Interpretation: Negative Depression Screening Done: Yes Source: Developed by Drs. Sanjay Bliss, Vida Hernandez, Hector Duarte and colleagues, with an educational cynthia from [employer]. Thrive Questionnaire Date Thrive assessed: 07/15/24 I am a: Patient What is your living situation today?: I have a steady place to live Within the past 12 months, did the food you bought not last and you didn't have the money to get more?: Never true Within the past 12 months, did you worry whether your food would run out before you got money to buy more?: Never true Do you have trouble paying for medicines?: No Do you have trouble getting transportation to medical appointments?: No Do you have trouble paying your heating and electricity bill?: No Do you have trouble taking care of your child, family member or friend?: No Do you have trouble with day-to-day activities such as bathing, preparing meals, shopping, managing finances, etc.?: No Are you currently unemployed and looking for a job?: No Are you interested in more education?: No Please select the resources that you would like help with: None Currently or been in a relationship where the following occur: No concerns reported THRIVE Score: 0 AUDIT C Alcohol Use Questionnaire (AUDIT-C) 1. How often do you have a drink containing alcohol?: Never Total Score: 0 INDERJIT-7 AMB Questionnaire INDERJIT-7 Date INDERJIT - 7 assessed: 07/15/24 Feeling nervous, anxious, or on edge: 0 = Not at all Not being able to stop or control worryin = Not at all Worrying too much about different things: 0 = Not at all Trouble relaxin = Not at all Being so restless that it is hard to sit still: 0 = Not at all Becoming easily annoyed or irritable: 0 = Not at all Feeling afraid as if something awful might happen: 0 = Not at all Total INDERJIT-7 score (0-4 normal; 5-9 mild; 10-14 moderate; 15-21 severe): 0 Source: Developed by Drs. Sanjay Bliss, Vida Hernandez, Hector Duarte and colleagues, with an educational cynthia from [employer]. Physical exam (Primary Care) Vital Signs: Last Vital Signs Temp 97.3 F 07/15/24 14:09 Pulse 56 07/15/24 14:09 BP 120/68 07/15/24 14:09 Pulse Ox 98 07/15/24 14:09 Oxygen Delivery Method Room Air 07/15/24 14:09 BMI result Body Mass Index 26.7 Tobacco/Smoking Status: Tobacco use Status Tobacco use date assessed 07/15/24 07/15/24 14:17 Patient Tobacco Use Status Former Tobacco user 07/15/24 14:17 e-Cigarette/Vaping Use Never Used 07/15/24 14:17 PHQ-9: PHQ-9 Score PHQ-9: Total score 0 07/15/24 14:17 Depression Screening Interpretation: Negative Thrive Assessment: Date of Thrive Assessment Date Thrive assessed 07/15/24 07/15/24 14:17 Currently or been in a relationship where the following occur: No concerns reported Coding Level of Care Code Est Pt Level 4 (22563) Complex EM visit Add On G2211 Diagnoses Mild episode of recurrent major depressive disorder F33.0 Major depression recurrence: recurrent Active/Remission status: currently active Major depression episode severity: mild Primary hypertension I10 Hypertension type: primary hypertension Hypercholesteremia E78.00 Hypothyroidism (acquired) E03.9 Assessment & Plan Assessment & Plan (1) MDD (major depressive disorder): Code(s): F32.9 - Major depressive disorder, single episode, unspecified Category: Medical Qualifiers: Major depression recurrence: recurrent Active/Remission status: currently active Major depression episode severity: mild Qualified Code(s): F33.0 - Major depressive disorder, recurrent, mild Plan: Condition is stable. (2) HTN (hypertension): Code(s): I10 - Essential (primary) hypertension Category: Medical Qualifiers: Hypertension type: primary hypertension Qualified Code(s): I10 - Essential (primary) hypertension Plan: BP in range, bw has been ordered (3) Hypercholesteremia: Code(s): E78.00 - Pure hypercholesterolemia, unspecified Category: Medical Plan: BW has been ordered. Will call with the results (4) Hypothyroidism (acquired): Code(s): E03.9 - Hypothyroidism, unspecified Category: Medical Plan: Continue current medications Plan History of Present Illness The patient is a 73 year old male presenting with a routine follow-up visit. He has undergone previous cataract surgery and received multifocal lens implants. The patient reports occasional halos around lights, though they do not pose a major disturbance, and has observed some changes in vision related to lens opacification. His family history includes similar conditions treated with laser; however, no additional symptoms have been reported during this visit. He had a recent episode of influenza, from which he has since recovered, and he states that his new knee, which was replaced six months ago, is functioning well. He denies any significant issues such as urination problems, stomach pain, or interference with his daily activities. Overall, he maintains an active lifestyle and reports engaging in regular physical activity like housework and walking, especially since the weather is improving. Social History - Engages in housework, both at his own residence and a family member's home. - Currently stays active by walking and performing daily activities such as shoveling snow. - Has not recently received flu or COVID vaccinations this year but is aware of the option to get them next year. Review of Systems - Ophthalmologic: Reports halos around lights. Denies significant vision impairment affecting his daily activities. - Musculoskeletal: Recent knee replacement is doing well, enabling normal activities. - Respiratory: Recent influenza but resolved. - Gastrointestinal: Denies abdominal pain or discomfort. - Genitourinary: Denies trouble urinating. Physical Exam General: Cooperative and healthy appearing Nutritional Appearance: Well nourished Orientation/consciousness: Patient oriented x3 Limitations: No limitations Head: Normal to inspection General: Appearance normal, both eyes and all related structures Neck: Normal visual inspection Chest: Normal palpation of entire chest wall Respiratory: Normal respiratory effort Neurology: Patient oriented x3 Results - Labs: Blood work completed six months prior, yet to be repeated. Plan The patient and I reviewed his ocular status post-cataract surgery, noting the effective use of multifocal lenses and addressing minor haloing issues. We acknowledged the potential need for future intervention if lens complications arise, though no immediate action is warranted. The patient's recent influenza resolved without complications, and the knee replacement remains stable, facilitating his active lifestyle engagement. The patient opted against current seasonal vaccinations but plans to consider them next year. We agreed upon continued routine health monitoring, including follow-up blood work in six months. Patient was informed and verbally consented to the use of an ambient scribe for clinic note documentation during this visit. Discussion Notes During our discussion, I explained the current state of the patient's vision and lens status, addressing the halos without immediate concern. We discussed potential laser treatment options should lens opacification necessitate intervention in future visits. We also reflected on his resolved influenza and confirmed that his new knee function remains optimal. We acknowledged the patient's decision on seasonal vaccinations, ensuring he understood the alternatives and noting his openness to future vaccinations. I emphasized the importance of regular health check-ups and scheduled a follow-up in six months, including repeat blood work to monitor his wellness. Patient Instructions - Continue to monitor eye symptoms, including any changes in vision. - Return for routine follow-up in six months with repeat blood work. - Maintain active lifestyle as tolerated, utilizing walking and housework for exercise. - Consider vaccinations for flu and COVID-19 in the next season. - Contact the office if there are any significant changes in health status or concerns arise.
[2024-07-15 14:09] VITALS: BP 120/68; PULSE 56; TEMP 36.3; O2SAT 98; BMI 26.7
--- OUTSIDE RECORDS SUMMARY | 2024-07-15 17:23 | XMS_ITS | Clinical Summary ---
Author Organization [facility] ity Address [address] [place] [address] Care Team Providers Care Joint Cleaning Machine Operator Name Role Phone Unavailable Primary Care Provider Unavailabl e Social History Tobacco Use Types Packs/Day Years Used Date Smoking Tobacco: Never Assessed Sex and Gender Information Value Date Recorded Sex Assigned at Not on file Legal Sex Male 2:42 PM EST Gender Identity Not on file Sexual Orientation Not on file Plan of Treatment Health Maintenance Due Date Last Done Comments Pneumococcal Vaccine: 50+ Ye ars (1 of 1 - PCV) 2002 Zoster Vaccines (1 of 2) 2002 Abdominal Aortic Aneurysm (A AA) Screen 06/03/2023 Cholesterol Screening (Lipid Panel) 06/03/2023 Colorectal Cancer Screening: Colonoscopy 06/03/2023 Depression Screening 06/03/2023 Falls Risk Assessment 06/03/2023 Hepatitis C Screening 06/03/2023 Social Influencers of Health Screening 06/03/2023 COVID-19 Vaccine ( - 2023-2 5 season) 2024 Influenza Vaccine (#1) 2024 RSV Immunization Patients 60 + Years Old (1 - 1-dose 75+ series) 10/16/2027 DTaP,Tdap,and Td Vaccines (2 - Td or Tdap) 07/31/2028 07/31/2018 HIB Vaccines Aged Out No longer eligi ble based on patient's age to complete this topic HPV Vaccines Aged Out No longer eligi ble based on patient's age to complete this topic Hepatitis A Vaccines Aged Out No long er eligible based on patient's age to complete this topic Hepatitis B Vaccines Aged Out No long er eligible based on patient's age to complete this topic IPV Vaccines Aged Out No longer eligi ble based on patient's age to complete this topic MMR Vaccines Aged Out No longer eligi ble based on patient's age to complete this topic Meningococcal ACWY Vaccine Aged Out N o longer eligible based on patient's age to complete this topic Meningococcal B Vacine Aged Out No lo nger eligible based on patient's age to complete this topic RSV Immunization Patients Un sonal 20 months Aged Out No longer eligible b ased on patient's age to complete this topic Varicella Vaccines Aged Out No longer eligible based on patient's age to complete this topic
== END 2024-07-15 15:00 | disposition home or self-care (01) ==
LOC: HO.HMCH 13:45
PROVIDERS: PCP Internal Medicine; Visit Provider Internal Medicine
DX: F33.0 Major depressive disorder, recurrent, mild (principal); I10 Essential (primary) hypertension; E78.00 Pure hypercholesterolemia, unspecified; E03.9 Hypothyroidism, unspecified

== ENCOUNTER → 2024-07-15 13:45 | Outpatient (BNVA) | payer MEDICARE, SELFPAY | PROVIDERS: PCP Internal Medicine; Visit Provider Internal Medicine | DX: F33.0 Major depressive disorder, recurrent, mild (principal); I10 Essential (primary) hypertension; E78.00 Pure hypercholesterolemia, unspecified; E03.9 Hypothyroidism, unspecified | CPT/HCPCS: 99212 ==

== ENCOUNTER 2024-08-18 07:40 | Outpatient (REF) | payer MEDICARE, SELFPAY ==
--- OUTSIDE RECORDS SUMMARY | 2024-08-18 07:44 | XMS_ITS | Clinical Summary ---
Author Organization [facility] ity Address [address] [place] [address] Care Team Providers Care Investment Manager Name Role Phone Unavailable Primary Care Provider [...] - 2023-2 5 season) 2024 Influenza Vaccine (Season Ended) 2025 RSV Immunization Adult Patie nts (1 - 1-dose 75+ series) 10/16/2027 DTaP,Tdap,and [...] age to complete this topic Meningococcal B Vaccine Aged Out No l onger eligible based on patient's age to complete this topic RSV Immunization Patients Un sonal 20 months Aged Out No longer eligible b ased on patient's age to complete this topic Varicella Vaccines Aged Out No longer eligible based on patient's age to complete this topic
[2024-08-18 10:22] LABS: Hemoglobin 13.1 g/dl (14.0-18.0); Mean Corpuscular HGB Conc 34.5 g/dl (31.0-36.0); Mean Corpuscular Hemoglobin 31.6 pg (27.0-33.0); Mean Corpuscular Volume 91.8 fL (80.0-98.0); Mean Platelet Volume 10.3 fL (9.4-12.4); Platelet Count 164 X10*3/uL (160-400); Red Blood Count 4.14 X10*6/uL (4.60-5.80); Red Cell Distribution Width 12.5 % (11.0-16.0); White Blood Count 4.9 X10*3/uL (4.8-10.8)
[2024-08-18 11:12] LABS: Appearance Urine Clear; Color Urine Yellow; Glucose Urine UA Negative (Negative); Leukocyte Esterase Urine Negative (Negative); Nitrite Urine Negative (Negative); PH 6.5 (5.0-9.0); Urine Blood Negative (Negative); Urine Ketones Negative (Negative); Urine Protein Negative (Neg-Trace)
[2024-08-18 11:14] LABS: Alanine Aminotransferase 24 U/L (0-40); Albumin Level 4.2 g/dL (3.5-5.0); Alkaline Phosphatase 70 U/L (39-117); Anion Gap 10 (12-20); Aspartate Amino Transferase 33 U/L (5-37); Bilirubin Direct 0.2 mg/dL (0.0-0.5); Bilirubin Total 0.5 mg/dL (0.0-1.0); Blood Urea Nitrogen 17 mg/dL (9-16); Calcium 8.9 mg/dL (8.4-10.2); Carbon Dioxide 24 mmol/L (22-29); Chloride 108 mmol/L (96-108); Cholesterol 203 mg/dL (<200); Estimated Glomerular Filt Rate 54; Glucose Random 92 mg/dL (60-115); HDL Cholesterol 52 mg/dL (>40); LDL Cholesterol Calculated 122 mg/dL (<100); Potassium 4.1 mmol/L (3.3-5.1); Sodium 138 mmol/L (135-145); Triglycerides 145 mg/dL (<150)
[2024-08-18 11:15] LABS: Thyroid Stimulating Hormone 0.55 uIU/mL (0.32-4.0)
== END 2024-08-18 07:41 | disposition home or self-care (01) ==
LOC: HO.HMGCLDS 07:40
PROVIDERS: PCP Internal Medicine; Visit Provider Internal Medicine
DX: F33.0 Major depressive disorder, recurrent, mild (principal); I10 Essential (primary) hypertension; E03.9 Hypothyroidism, unspecified
CPT/HCPCS: 36415; 80048; 80061; 80076; 81003; 84443; 85027

== ENCOUNTER 2025-01-13 10:26 | Outpatient (AMB) | payer MEDICARE, SELFPAY ==
--- NOTE | 2025-01-13 10:50 | A.OFFPC_ITS ---
Vital Signs 01/13/25 10:51 Height 5 ft 9 in Weight 178 lb 6 oz BMI 26.3 BP 140/80 H Blood Pressure Location Lt brachial Position Sitting Pulse 57 Pulse Source Pulse Oximeter Temp 97.5 F Temp Source Temporal Artery Scan Pulse Oximetry (%) 98 Oxygen Delivery Method Room Air Intake Visit Reasons: 6 Month F/U Intake Note: Patient is here to follow up on HTN, Hypercholesteremia, Andre disease. Senior Portfolio Manager Required: No Watch Supervisor: Present Accompanied by: Spouse Allergies cat dander Allergy (Unknown, Verified 01/13/25 10:51) Unknown mold Allergy (Unknown, Verified 01/13/25 10:51) Unknown tree and shrub pollen Allergy (Unknown, Verified 01/13/25 10:51) Unknown Tobacco use date assessed: 01/13/25 Fall risk assessment: No Falls in past year Last assessed Fall Risk: 01/13/25 Dental Screening Dental Screen Date: 07/15/24 [facility] Medical History (Updated 07/15/24 @ 14:15 by SAÚL Florentino) History of insertion of dental endosseous implant MDD (major depressive disorder) HTN (hypertension) Andre's disease Hypothyroidism (acquired) Surgical History History of colonoscopy with polypectomy (~09/13/22) History of oral surgery History of knee replacement procedure of right knee History of bilateral cataract extraction History of hip replacement H/O knee surgery History of tonsillectomy Family History Father Hypertension Aortic valvular disease Mother Hypertension Alzheimers disease Maternal Aunt Cancer Social History Household Members: Spouse Housing: House Alcohol intake: former Patient Tobacco Use Status: Former Tobacco user e-Cigarette/Vaping Use: Never Used Second Hand Smoke Exposure: Yes service: No Current occupational status: retired Cognitive needs: No Hearing needs: No Vision needs: No Questionnaire PHQ-9 Over the last 2 weeks, how often have you been bothered by any of the following problems? 1. Little interest or pleasure in doing things: not at all 2. Feeling down, depressed, or hopeless: not at all 3. Trouble falling or staying asleep, or sleeping too much: not at all 4. Feeling tired or having little energy: not at all 5. Poor appetite or overeating: not at all 6. Feeling bad about yourself - or that you are a failure or have let yourself or your family down: not at all 7. Trouble concentrating on things, such as reading the newspaper or watching television: not at all 8. Moving or speaking so slowly that other people could have noticed. Or the opposite - being so fidgety or restless that you have been moving around a lot more than usual: not at all 9. Thoughts that you would be better off or of hurting yourself in some way: not at all Total score: 0 Depression Screening Interpretation: Negative Depression Screening Done: Yes Source: Developed by Drs. Sanjay Bliss, Vida Hernandez, Hector Duarte and colleagues, with an educational cynthia from [employer]. Thrive Questionnaire Date Thrive assessed: 07/15/24 I am a: Patient What is your living situation today?: I have a steady place to live Within the past 12 months, did the food you bought not last and you didn't have the money to get more?: Never true Within the past 12 months, did you worry whether your food would run out before you got money to buy more?: Never true Do you have trouble paying for medicines?: No Do you have trouble getting transportation to medical appointments?: No Do you have trouble paying your heating and electricity bill?: No Do you have trouble taking care of your child, family member or friend?: No Do you have trouble with day-to-day activities such as bathing, preparing meals, shopping, managing finances, etc.?: No Are you currently unemployed and looking for a job?: No Are you interested in more education?: No Please select the resources that you would like help with: None Currently or been in a relationship where the following occur: No concerns reported THRIVE Score: 0 AUDIT C Alcohol Use Questionnaire (AUDIT-C) 1. How often do you have a drink containing alcohol?: Never Total Score: 0 INDERJIT-7 AMB Questionnaire INDERJIT-7 Date INDERJIT - 7 assessed: 07/15/24 Feeling nervous, anxious, or on edge: 0 = Not at all Not being able to stop or control worryin = Not at all Worrying too much about different things: 0 = Not at all Trouble relaxin = Not at all Being so restless that it is hard to sit still: 0 = Not at all Becoming easily annoyed or irritable: 3 = Nearly every day Feeling afraid as if something awful might happen: 3 = Nearly every day Total INDERJIT-7 score (0-4 normal; 5-9 mild; 10-14 moderate; 15-21 severe): 6 Source: Developed by Drs. Sanjay Bliss, Vida Hernandez, Hector Duarte and colleagues, with an educational cynthia from [employer]. Physical exam (Primary Care) Vital Signs: Last Vital Signs Temp 97.5 F 01/13/25 10:51 Pulse 57 01/13/25 10:51 BP 140/80 H 01/13/25 10:51 Pulse Ox 98 01/13/25 10:51 Oxygen Delivery Method Room Air 01/13/25 10:51 BMI result Body Mass Index 26.3 Tobacco/Smoking Status: Tobacco use Status Tobacco use date assessed 01/13/25 01/13/25 10:54 Patient Tobacco Use Status Former Tobacco user 01/13/25 10:54 e-Cigarette/Vaping Use Never Used 01/13/25 10:54 PHQ-9: PHQ-9 Score PHQ-9: Total score 0 01/13/25 10:54 Depression Screening Interpretation: Negative Thrive Assessment: Date of Thrive Assessment Date Thrive assessed 07/15/24 01/13/25 10:54 Currently or been in a relationship where the following occur: No concerns reported Coding Level of Care Code Est Pt Level 4 (81045) Complex EM visit Add On G2211 Diagnoses Mild episode of recurrent major depressive disorder F33.0 Major depression recurrence: recurrent Active/Remission status: currently active Major depression episode severity: mild Assessment & Plan Assessment & Plan (1) MDD (major depressive disorder): Code(s): F32.9 - Major depressive disorder, single episode, unspecified Category: Medical Qualifiers: Major depression recurrence: recurrent Active/Remission status: currently active Major depression episode severity: mild Qualified Code(s): F33.0 - Major depressive disorder, recurrent, mild Plan: History of Present Illness - The patient is a 74-year-old male presenting for a follow-up on hyperlipidemia and to discuss previous eye issues. - Hyperlipidemia: The patient has been monitoring his cholesterol levels, which have been decreasing over the past few years. - He was previously advised to consider medication for cholesterol management, but recent trends show improvement. - Posterior capsule opacification: The patient experienced fogging of the lens membrane, which was identified by his grease maker last year. - He underwent laser treatment by Dr. Lori William, which resolved the issue, eliminating halos while driving and restoring normal function. Social History - Exercise: The patient engages in physical activities such as cutting grass and laying mulch, indicating a good level of physical activity. Review of Systems - Ophthalmologic: Denies halos while driving, reports resolution of previous vision issues. - Musculoskeletal: Denies neck pain. - Neurological: Denies tongue pain. Physical Exam General: Cooperative and healthy appearing Nutritional Appearance: Well nourished Orientation/consciousness: Patient oriented x3 Limitations: No limitations Head: Normal to inspection General: Appearance normal, both eyes and all related structures Neck: Normal visual inspection Chest: Normal palpation of entire chest wall Respiratory: N ormal respiratory effort Neurology: Patient oriented x3, no pain in neck or tongue Results Plan 1. Hyperlipidemia - Plan to monitor cholesterol levels with fasting blood work in six months. 2. Posterior Capsule Opacification - No further intervention required as the issue has been resolved with laser treatment. Discussion Notes During the visit, we discussed the patient's cholesterol management, noting the improvement in levels over the past few years. We agreed to continue monitoring with fasting blood work in six months. The patient also reported resolution of his eye issue following laser treatment, with no further symptoms or need for additional intervention. Patient Instructions - Continue current lifestyle and dietary habits to maintain cholesterol levels. - Schedule fasting blood work in six months to monitor cholesterol. - Report any new vision changes or symptoms to your grease maker.
[2025-01-13 10:51] VITALS: BP 140/80; PULSE 57; TEMP 36.4; O2SAT 98; BMI 26.3
== END 2025-01-13 11:41 | disposition home or self-care (01) ==
LOC: HO.HMCH 10:27
PROVIDERS: PCP Internal Medicine; Visit Provider Internal Medicine
DX: F33.0 Major depressive disorder, recurrent, mild (principal)

== ENCOUNTER → 2025-01-13 10:26 | Outpatient (BNVA) | payer MEDICARE, SELFPAY | PROVIDERS: PCP Internal Medicine; Visit Provider Internal Medicine | DX: F33.0 Major depressive disorder, recurrent, mild (principal); E78.5 Hyperlipidemia, unspecified; I10 Essential (primary) hypertension; Z13.31 Encounter for screening for depression | CPT/HCPCS: 96127; 99212 ==